=== PATIENT | female | born 1935 | race Caucasian/White ===

== ENCOUNTER 2019-09-03 07:11 | Day surgery (SDC) | payer MEDICARE, MEDICAID ==
[2019-09-02 16:04] LABS: BASOPHILS # (AUTO) 0.1 X10'3 (0-0.2); BASOPHILS % (AUTO) 0.6 % (0-1); EOSINOPHILS # (AUTO) 0.1 X10'3 (0-0.9); EOSINOPHILS % (AUTO) 0.5 % (0-6); HEMATOCRIT 40.3 % (35.0-45.0); HEMOGLOBIN 13.7 g/dl (12.0-16.0); LYMPHOCYTES # (AUTO) 3.3 X10'3 (1.1-4.8); LYMPHOCYTES % (AUTO) 32.6 % (21-51); MEAN CORPUSCULAR HEMOGLOBIN 31.1 PG (27.0-31.0); MEAN CORPUSCULAR HGB CONC 33.9 g/dL (33.0-36.5); MEAN CORPUSCULAR VOLUME 91.9 FL (78-98); MEAN PLATELET VOLUME 9.3 FL (7.4-10.4); MONOCYTES # (AUTO) 1.2 X10'3 (0-0.9); MONOCYTES % (AUTO) 11.3 % (2-12); NEUTROPHILS # (AUTO) 5.6 X10'3 (1.8-7.7); PLATELET COUNT 292 X10'3 (140-440); RED BLOOD COUNT 4.39 X10'6 (4.20-5.60); RED CELL DISTRIBUTION WIDTH 13.5 % (11.5-14.5); WHITE BLOOD COUNT 10.2 X10'3 (4.5-11.0)
[2019-09-02 16:12] LABS: ALBUMIN 3.9 G/DL (3.4-5.0); ANION GAP 10 (8-16); BLOOD UREA NITROGEN 13 MG/DL (7-18); BUN/CREATININE RATIO 14.3 (6.6-38.0); CALCIUM 9.4 MG/DL (8.5-10.1); CHLORIDE 106 MMOL/L (99-107); CREATININE 0.91 MG/DL (0.40-0.90); GLUCOSE 129 MG/DL (70-104); SODIUM 141 MMOL/L (135-145); TOTAL CARBON DIOXIDE 24.8 MMOL/L (24-32); eGFR 59 ML/MIN
[2019-09-02 16:16] LABS: PARTIAL THROMBOPLASTIN TIME 27 SECONDS (22-32)
[2019-09-03] VITALS (15 sets, daily range): BP systolic 102–165; BP diastolic 43–67
[~2019-09-03] VITALS: Ht 160 cm; Wt 51.8 kg
[~2019-09-03 07:11] MED LIST: ASPI-1265 PO; ATEN50TA8 PO; ATOR20TA66 PO; HYDR-4070 PO; LISI10TA4 PO; METF500T PO; OMEP20TA5 PO
[2019-09-03] MEDS ORDERED: diphenhydrAMINE 25mg capsule PO PRN (07:25)
[2019-09-03] MEDS ORDERED: acetylcysteine 200 MG/ml 4ml vial PO PRN (07:25)
[2019-09-03] MEDS ORDERED: normal saline 1,000 ML IV SCH (07:25)
[2019-09-03] MEDS ORDERED: ISOS60TA4 PO (08:30)
[2019-09-03] MEDS ORDERED: LORazepam 0.5 MG tablet PO ONE (08:30)
[2019-09-03] MEDS ORDERED: FLU VACC QS2019-20 36MOS UP/PF 60 MCG/0.5 ML SYRINGE IMVAC ONE (09:00)
[2019-09-03] MEDS ORDERED: LIDOcaine 1% (10mg/ml)w/preservative injection 20ml MDV ONE (09:20)
[2019-09-03] MEDS ORDERED: midazolam 2 mg/2 ml injection ONE (09:20)
[2019-09-03] MEDS ORDERED: fentaNYL/PF 50MCG/1 ML 2ML syringe ONE (09:20)
[2019-09-03] MEDS ORDERED: nitroGLYCERIN-Tridil 50MG/D5W 250 ML IV ONE (09:20)
[2019-09-03] MEDS ORDERED: iohexol 350 MG/ML 50ML vial IV ONE (09:21)
[2019-09-03] MEDS ORDERED: heparin 1,000unit/ml 10ml vial 10 ML ONE (09:21)
[2019-09-03] MEDS ORDERED: iohexol 350MG/ML 100ml bottle IV ONE ×2 (09:21→09:58)
[2019-09-03] MEDS ORDERED: hydrALAZINE 20mg/ml inj. IV ONE (10:10)
[2019-09-03] MEDS ORDERED: acetaminophen 325mg tablet PO ONE (18:35)
== END 2019-09-03 19:00 | disposition home or self-care (01) ==
LOC: SSTAY O 07:11
PROVIDERS: ATTEND Internal Medicine Cardiovascular Disease
DX: I25.119 Atherosclerotic heart disease of native coronary artery with unspecified angina pectoris (principal); I10 Essential (primary) hypertension; I44.2 Atrioventricular block, complete; E78.5 Hyperlipidemia, unspecified; E11.9 Type 2 diabetes mellitus without complications; K21.9 Gastro-esophageal reflux disease without esophagitis; F32.9 Major depressive disorder, single episode, unspecified; G43.909 Migraine, unspecified, not intractable, without status migrainosus; Z95.1 Presence of aortocoronary bypass graft; Z95.0 Presence of cardiac pacemaker; Z79.82 Long term (current) use of aspirin; Z79.899 Other long term (current) drug therapy; Z79.84 Long term (current) use of oral hypoglycemic drugs; Z88.5 Allergy status to narcotic agent; Z79.01 Long term (current) use of anticoagulants
CPT/HCPCS: 36415; 80048; 82948; 85025; 85610; 85730; 93005; 93459; 99152; 99153; C1760; C1769; J0360; J1644; J2001; J2250; J3010; J7030; Q0163; Q9967; A4620; A6258; J3490; Q2037